=== PATIENT | female | born 1990 | race Caucasian/White ===

== ENCOUNTER 2021-10-24 13:16 | Emergency (ER) | payer MEDICAID ==
[~2021-10-24] VITALS: Ht 167.6 cm; Wt 79.4 kg
[2021-10-24 14:07] VITALS: BP 124/87
[2021-10-24] MEDS ORDERED: CEPH500T PO (14:10)
== END 2021-10-24 14:30 | disposition home or self-care (01) ==
LOC: ER 13:16
DX: L03.011 Cellulitis of right finger (principal); J45.909 Unspecified asthma, uncomplicated
CPT/HCPCS: 10060